=== PATIENT | male | born 1975 | race Hispanic/Latino ===

== ENCOUNTER → 2018-12-16 | Day surgery (SDC) | payer OTHER ==
--- NOTE | 2018-12-06 17:15 | Diagnostic Imaging Report ---
EXAMINATION: CHEST 2 VIEWS INDICATION: Pre-operative COMPARISON: None FINDINGS: LINES/TUBES:None LUNGS:The lungs are well-inflated. No focal consolidation or pulmonary edema. PLEURA:No pleural effusion or pneumothorax. MEDIASTINUM:The cardiomediastinal silhouette appears normal in size and shape. BONES/SOFT TISSUES:No acute osseous injury. ABDOMEN:No free air under the diaphragm. IMPRESSION: No focal pneumonia or pulmonary edema. Signed by: Cristian Gore MD on 12/06/2018 5:12 PM
--- OUTSIDE RECORDS SUMMARY | 2018-12-12 05:24 | XMS REPORT ---
Author Author [facility] Address Unknown Phone Unavailable Care Team Providers Care Hop Grower Name Role Phone Peri ANSARI Unavailable Unavailable Payers Payer Name Policy Type Policy Number Effective Date Expiration Date Problems This patient has no known problems. Allergies, Adverse Reactions, Alerts Allergy Name Allergy Type Status Severity Reaction(s) Onset Date Inactive Date Treating Clinician Comments No Known Allergies DA Active U 2018-11-15 00:00:00 No Known Allergies DA Active U 2018-09-27 00:00:00 No Known Allergies DA Active U 2015-07-10 00:00:00 Medications This patient has no known medications. Results Test Description Test Time Test Comments Text Results Atomic Results Result Comments CHEST 2 VIEWS 2018-12-06 17:05:00 [place] [address] Patient Name: OLEG MATA MR #: [id number] : 1975 Age/Sex: 43/M Req #: [id number] Adm Physician: Ordered by: PO ANSARI DP Report #: [id number] Location: OR Room/Bed: Procedure: [id number] DX/CHEST 2 VIEWS Exam Date: 12/06/18 Exam Time: 1610 REPORT STATUS: Signed EXAMINATION: CHEST 2 VIEWS INDICATION: Pre-operative COMPARISON: None FINDINGS: LINES/TUBES:None LUNGS:The lungs are well-inflated. No focal consolidation or pulmonary edema. PLEURA:No pleural effusion or pneumothorax. MEDIASTINUM:The cardiomediastinal silhouette appears normal in size and shape. BONES/SOFT TISSUES:No acute osseous injury. ABDOMEN:No free air under the diaphragm. IMPRESSION: No focal pneumonia or pulmonary edema. Signed by: Justin William MD on 12/06/2018 5:12 PM Dictated By: JUSTIN WILLIAM MD 11 Transcribed By: VIRIDIANA on 12/06/181711 COPY TO: PO ANSARI BASIC METABOLIC PANEL 2018-11-15 12:36:00 SODIUM (test code=NA) 137 mmol/L 136-145 POTASSIUM (test code=K) 3.7 mmol/L 3.5-5.1 CHLORIDE (test code=CL) 106.0 mmol/L 98-107 CARBON DIOXIDE (test code=CO2) 25.0 mmol/L 21-32 ANION GAP (test code=GAP) 9.7 10-20 GLUCOSE (test code=GLU) 174 mg/dL 74-106 BLOOD UREA NITROGEN (test code=BUN) 11 mg/dL 7-18 GLOMERULAR FILTRATION RATE (test code=GFR) > 60 mL/min >=60 Estimated GFR by using Modified MDRD formula.Chronic kidney disease is defined as either kidney damageor GFR <60 mL/min/1.73 m2 for >3 months. CREATININE (test code=CREAT) 0.80 mg/dL 0.7-1.3 BUN/CREATININE RATIO (test code=BUN/CREA) 14.5 10-20 CALCIUM (test code=CA) 9.2 mg/dL 8.5-10.1 CBC W/O [id number] 12:14:00* Test Item Value Reference Range Comments WHITE BLOOD CELL (test code=WBC) 7.5 K/mm3 4.5-12.5 RED BLOOD CELL (test code=RBC) 4.71 mill/mm3 4.0-5.8 HEMOGLOBIN (test code=HGB) 14.0 gram/dL 13.0-17.5 HEMATOCRIT (test code=HCT) 41.3 % 42.0-52.0 MEAN CELL VOLUME (test code=MCV) 87.7 fL 80-98 MEAN CELL HGB (test code=MCH) 29.7 picogram 27.0-33.0 MEAN CELL HGB CONCETRATION (test code=MCHC) 33.9 gram/dL 33.0-36.0 RED CELL DISTRIBUTION WIDTH (test code=RDW) 12.6 % 11.6-16.2 PLATELET COUNT (test code=PLT) 208 K/mm3 150-450 MEAN PLATELET VOLUME (test code=MPV) 11.1 fL 6.7-11.0 BASIC METABOLIC [id number] 12:13:00* Test Item Value Reference Range Comments SODIUM (test code=NA) 137 mmol/L 136-145 POTASSIUM (test code=K) 3.7 mmol/L 3.5-5.1 CHLORIDE (test code=CL) 106.0 mmol/L 98-107 CARBON DIOXIDE (test code=CO2) mmol/L 21-32 ANION GAP (test code=GAP) 10-20 GLUCOSE (test code=GLU) mg/dL 74-106 BLOOD UREA NITROGEN (test code=BUN) mg/dL 7-18 GLOMERULAR FILTRATION RATE (test code=GFR) mL/min >=60 CREATININE (test code=CREAT) mg/dL 0.7-1.3 BUN/CREATININE RATIO (test code=BUN/CREA) 10-20 CALCIUM (test code=CA) mg/dL 8.5-10.1 CBC W/O [id number] 12:11:00* Test Item Value Reference Range Comments WHITE BLOOD CELL (test code=WBC) K/mm3 4.5-12.5 RED BLOOD CELL (test code=RBC) mill/mm3 4.0-5.8 HEMOGLOBIN (test code=HGB) 14.0 gram/dL 13.0-17.5 HEMATOCRIT (test code=HCT) % 42.0-52.0 MEAN CELL VOLUME (test code=MCV) fL 80-98 MEAN CELL HGB (test code=MCH) picogram 27.0-33.0 MEAN CELL HGB CONCETRATION (test code=MCHC) gram/dL 33.0-36.0 RED CELL DISTRIBUTION WIDTH (test code=RDW) % 11.6-16.2 PLATELET COUNT (test code=PLT) K/mm3 150-450 MEAN PLATELET VOLUME (test code=MPV) fL 6.7-11.0 - XR FOOT 3 + V [id number] 11:27:00 FAX: Tyra Jones NP [place]: St: REG Name: OLEG MICHAELS [facility] : [birth year] Age/S: 43/M [address] [facility] Unit #: [id number] Loc: [place] [address] Phys: Tyra Jones NP Acct: [id number] Dis Date: Status: REG ER PHONE #: [phone] Exam Date: 11/15/2018 1111 FAX #: [phone] Reason: FOOT PAIN EXAMS: CPT CODE: [id number] XR FOOT 3 + [place] [id number] TECHNIQUE - XR FOOT 3 + V LT . COMPARISON: None provided. HISTORY: 43 years Male FOOT PAIN FINDINGS: Bones: Acute fracture involves the mid/proximal portion of the fifth metatarsal, 2 mm greatest fragment separation. Soft tissue swelling. No dislocation. No suspicious bone lesion. Joints: Mild osteophytes. Mild joint spa ce reduction. No subchondral bone lesions. No bony erosions. Other: None. IMPRESSION: Acute fracture involves t he mid/proximal portion of the fifth metatarsal, 2 mm greatest fragment separation. Soft tissue swelling. Mild osteoarthritic changes. at 1127 Reported and signed by: Jasper Massey M.D. CC: Tyra Jones NP Technologist: Nichole Li) [facility] Date/Time/By: 11/15/2018 (1127) : By: Ann MarieALICIA Orig Print D/T: S: 11/15/2018 (0415) PAGE 1 Signed Report - CT ABD PELVIS W WO [id number] 17:36:00 Name: OLEG LACKEY [facility] : 1975 Age/S: 43 / M [address] [facility] [facility] Unit #: [id number] Loc: [place] [address] Phys: Mukund Londono MD Acct: [id number] Dis Date: Status: REG ER PHONE #: [phone] Exam Date: 09/27/2018 170 FAX #: [phone] Reason: back pain, hematuria EXAMS: CPT CODE: [id number] CT ABD PELVIS W WO CONT 11042 HISTORY: Back pain and hematuria. COMPARISON: None available. CT of abdomen and pelvis with and without IV contrast: 100 mL of Isovue-370. Automated exposure control. CT abdomen: Lung bases are clear. Dependent changes. The liver is enhancing homogeneously no discrete mass. Liver measured 22.6 cm in length. Hepatic artery and portal vein remain patent. Unremarkable spleen. Stomach distended incompletely but it is normal. Pancreas is enhancing homogeneously. Unremarkable adrenals. Kidneys are free from hydroureteronephrosis with homogeneous enhancement. Bilateral excretion. No calyceal stones on the precontrast sequence. No perinephric collections. No pathologic adenopathy. Well-opacified abdominal and pelvic vasculature. No bowel obstruction or colitis or diverticulitis or enteritis. Constipation. CT PELVIS: Patient is post appendectomy. Pelvic bowel loops are unobstructed with mild sigmoid diverticulosis without diverticulitis. Unremarkable completely distended urinary bladder without mass or mural nodules. Seminal vesicles are unremarkable. The prostate is not enlarged. No pelvic pathologic adenopathy. Patulous fat-containing left inguinal canal. No free fluid or free air or abscess. Subcutaneous tissues and the musculature are normal in appearance. No lytic or blastic lesions are noted within the bony skeleton. Bone islands within both femoral heads. Mildly dilated S2 canal. IMPRESSION: PAGE 1 Signed Report (CONTINUED) Name: OLEG LACKEY [facility] : 1975 Age/S: 43 / M [address] Unit #: [id number] Loc: [place] [address] Phys: Mukund Londono MD Acct: [id number] Dis Date: Status: REG ER PHONE #: [phone] Exam Date: 09/27/2018 1707 FAX #: [phone] Reason: back pain, hematuria EXAMS: CPT CODE: [id number] CT ABD PELVIS W WO CONT 17600 < Continued> No acute intra-abdominal or intrapelvic pathology with no hydroureteronephrosis or calyceal stones and unremarkable urinary bladder. Dilated and patulous S2 canal. at 1731 Reported and signed by: Isra Perez M.D. CC: Mukund Londono MD Technologist:Izzy Bhandari RT(R) CTDI: DLP: Trnscb Date/Time: 09/27/2018 (173) t.SDR.[email or web address] Orig Print D/T: S: 09/27/2018 (1584) PAGE 2 Signed Report - XR L-SPINE 2/3 VIEWS 2018-09-27 16:49:00 FAX: Mukund Londono MD [phone]: St: REG Name: OLEG MICHAELS [facility] : [birth year] Age/S: 43/M [address] Unit #: [id number] Loc: [place] [address] Phys: Mukund Londono MD Acct: [id number] Dis Date: Status: REG ER PHONE #: [phone] Exam Date: 09/27/2018 1632 FAX #: [phone] Reason: low back pain EXAMS: CPT CODE: [id number] XR L-SPINE 2/3 VIEWS 87346 HISTORY: Low back pain. COMPARISON: None available. Lumbar spine series, 3 views: No acute fracture or dislocation. Vertebral body heights are ma intained. Narrowed disc space at L5-S1 level. Anterior osteophytes. Fac et arthropathy at L5-S1 level. IMPRESSION: No acute fracture or dislocation. Vertebral body heights are maintained. at 1649 Reported and signed by: Isra Perez M.D. CC: Mukund Londono MD Technologist: Varsha Griffith RT(R) Trnscrd Date/Time/By: 0 09/27/2018 (1648) : By: Ann MarieTH4 Orig Print D/T: S: 09/27/2018 (950) PAGE 1 Signed Report URINALYSIS [id number] 16:43:00* Test Item Value Reference Range Comments UA COLOR (test code=COLU) Light-Yellow YELLOW UA APPEARANCE (test code=APPU) CLEAR CLEAR UA GLUCOSE DIPSTICK (test code=DGLUU) NEGATIVE mg/dL NEGATIVE UA BILIRUBIN DIPSTICK (test code=BILU) NEGATIVE mg/dL NEGATIVE UA KETONE DIPSTICK (test code=KETU) NEGATIVE mg/dL NEGATIVE UA SPECIFIC GRAVITY (test code=SGU) 1.020 1.001-1.035 UA BLOOD DIPSTICK (test code=JUNG) Negative mg/dL NEGATIVE UA PH DIPSTICK (test code=MILAD) 6.0 5.0-8.0 UA PROTEIN DIPSTICK (test code=PROU) NEGATIVE mg/dL NEGATIVE UA UROBILINIOGEN DIPSTICK (test code=URO) Normal mg/dL NEGATIVE UA NITRITE DIPSTICK (test code=ROSELYN) NEGATIVE NEGATIVE UA LEUKOCYTE ESTERASE W REFLEX (test code=LEUUR) NEGATIVE [place]/uL NEGATIVE UA WBC (test code=WBCU) 0-5 per HPF 0-5 UA RBC (test code=RBCU) 0-2 #/HPF 0-5 UA EPITHELIAL CELLS (test code=EPIU) None seen per HPF FEW UA BACTERIA (test code=BACU) FEW #/HPF NONE UA MUCUS (test code=MUCU) FEW #/LPF FEW Urine Source? Clean CatchURINALYSIS [id number] 16:42:00* Test Item Value Reference Range Comments UA COLOR (test code=COLU) Light-Yellow YELLOW UA APPEARANCE (test code=APPU) CLEAR CLEAR UA GLUCOSE DIPSTICK (test code=DGLUU) NEGATIVE mg/dL NEGATIVE UA BILIRUBIN DIPSTICK (test code=BILU) NEGATIVE mg/dL NEGATIVE UA KETONE DIPSTICK (test code=KETU) NEGATIVE mg/dL NEGATIVE UA SPECIFIC GRAVITY (test code=SGU) 1.020 1.001-1.035 UA BLOOD DIPSTICK (test code=JUNG) Negative mg/dL NEGATIVE UA PH DIPSTICK (test code=MILAD) 6.0 5.0-8.0 UA PROTEIN DIPSTICK (test code=PROU) NEGATIVE mg/dL NEGATIVE UA UROBILINIOGEN DIPSTICK (test code=URO) Normal mg/dL NEGATIVE UA NITRITE DIPSTICK (test code=ROSELYN) NEGATIVE NEGATIVE UA LEUKOCYTE ESTERASE W REFLEX (test code=LEUUR) NEGATIVE [place]/uL NEGATIVE UA WBC (test code=WBCU) per HPF 0-5 UA RBC (test code=RBCU) per HPF 0-5 UA EPITHELIAL CELLS (test code=EPIU) per HPF Few UA BACTERIA (test code=BACU) per HPF NONE Urine Source? Clean [id number] 15:50:00* Test Item Value Reference Range Comments D-DIMER (test code=DDIMER) 289.00 ng/mLFEU 0-500 Clinical Cut-off value for D- Dimer is 500 ng/mL FEU. Comment: The [employer] D-Dimer assay is intended for use asan aid in the diagnosis of venous thromboembolism (VTE)[deep vein thrombosis (DVT) or pulmonary embolism (PE)].The measurement of D-Dimer should not be used as an aid inthe diagnosis of VTE, in patient with: -Therapeutic dose anticoagulant therapy for >24 hours -Fibrinolytic therapy within previous 7 days -Trauma or surgery within previous 4 weeks -Disseminated malignancies - Aortic aneurysm -Sepsis, severe infections, pneumonia, severe skin infections -Liver cirrhosis - PROTHROMBIN [id number] 15:41:00* Test Item Value Reference Range Comments PROTHROMBIN TIME PATIENT (test code=PTP) 11.5 seconds 9.0-14.0 INTERNATIONAL NORMAL RATIO (test code=INR) 1.0 0.8-1.2 The therapeutic range for oral anticoagulant therapy formost indications is an international normalized ratio (INR)of between 2.0 and 3.0. The recommended therapeutic INRrange for various clinical situations is listed below: Clinical Situation INR range Pulmonary e mbolism treatment (2.0-3.0)Venous thrombosis treatmentVenous thrombosis prophylaxis (high risk surgery)Prevention of systemic embolism from: Acute myocardial infarction Valvular heart disease Atrial fibrillation Mechanical prosthetic heart valves (2.5-3.5) IS PATIENT ON ANTICOAGULANTS? NTHROMBOPLASTIN TIME [id number] 15:41:00* Test Item Value Reference Range Comments THROMBOPLASTIN TIME PARTIAL (test code=PTT) 41.3 seconds 25.0-36.5 IS PATIENT ON ANTICOAGULANTS? NBASIC METABOLIC [id number] 15:40:00* Test Item Value Reference Range Comments SODIUM (test code=NA) 139 mmol/L 136-145 POTASSIUM (test code=K) 4.0 mmol/L 3.5-5.1 CHLORIDE (test code=CL) 108.0 mmol/L 98-107 CARBON DIOXIDE (test code=CO2) 26.0 mmol/L 21-32 ANION GAP (test code=GAP) 9.0 10-20 GLUCOSE (test code=GLU) 109 mg/dL 74-106 BLOOD UREA NITROGEN (test code=BUN) 13 mg/dL 7-18 GLOMERULAR FILTRATION RATE (test code=GFR) > 60 mL/min >=60 Estimated GFR by using Modified MDRD formula.Chronic kidney disease is defined as either kidney damageor GFR <60 mL/min/1.73 m2 for >3 months. CREATININE (test code=CREAT) 0.80 mg/dL 0.7-1.3 BUN/CREATININE RATIO (test code=BUN/CREA) 16.3 10-20 CALCIUM (test code=CA) 9.2 mg/dL 8.5-10.1 HEPATIC FUNCTION [id number] 15:40:00* Test Item Value Reference Range Comments TOTAL PROTEIN (test code=PROT) 7.9 gram/dL 6.4-8.2 ALBUMIN (test code=ALB) 4.3 g/dL 3.4-5.0 GLOBULIN (test code=GLOB) 3.6 gram/dL 2.7-4.2 ALBUMIN/GLOBULIN RATIO (test code=A/G) 1.2 0.75-1.50 BILIRUBIN TOTAL (test code=BILT) 0.40 mg/dL 0.0-1.0 BILIRUBIN DIRECT (test code=BILD) 0.07 mg/dL 0.0-0.20 SGOT/AST (test code=AST) 43 IUnit/L 15-37 SGPT/ALT (test code=ALT) 120 IUnit/L 12-78 ALKALINE PHOSPHATASE TOTAL (test code=ALKP) 91 IUnit/L 45-117 Note change in reference range due to change in reagent. [id number] 15:40:00* Test Item Value Reference Range Comments LIPASE (test code=LIP) 70 U/L 73.0-393.0 BASIC METABOLIC [id number] 15:32:00* Test Item Value Reference Range Comments SODIUM (test code=NA) 139 mmol/L 136-145 POTASSIUM (test code=K) 4.0 mmol/L 3.5-5.1 CHLORIDE (test code=CL) 108.0 mmol/L 98-107 CARBON DIOXIDE (test code=CO2) mmol/L 21-32 ANION GAP (test code=GAP) 10-20 GLUCOSE (test code=GLU) mg/dL 74-106 BLOOD UREA NITROGEN (test code=BUN) mg/dL 7-18 GLOMERULAR FILTRATION RATE (test code=GFR) mL/min >=60 CREATININE (test code=CREAT) mg/dL 0.7-1.3 BUN/CREATININE RATIO (test code=BUN/CREA) 10-20 CALCIUM (test code=CA) mg/dL 8.5-10.1 HEPATIC FUNCTION [id number] 15:32:00* Test Item Value Reference Range Comments TOTAL PROTEIN (test code=PROT) gram/dL 6.4-8.2 ALBUMIN (test code=ALB) g/dL 3.4-5.0 GLOBULIN (test code=GLOB) gram/dL 2.7-4.2 ALBUMIN/GLOBULIN RATIO (test code=A/G) 0.75-1.50 BILIRUBIN TOTAL (test code=BILT) mg/dL 0.0-1.0 BILIRUBIN DIRECT (test code=BILD) mg/dL 0.0-0.20 SGOT/AST (test code=AST) IUnit/L 15-37 SGPT/ALT (test code=ALT) IUnit/L 12-78 ALKALINE PHOSPHATASE TOTAL (test code=ALKP) IUnit/L 45-117 [id number] 15:32:00* Test Item Value Reference Range Comments LIPASE (test code=LIP) U/L 73.0-393.0 CBC W/O [id number] 15:31:00* Test Item Value Reference Range Comments WHITE BLOOD CELL (test code=WBC) 9.3 K/mm3 4.5-12.5 RED BLOOD CELL (test code=RBC) 5.06 mill/mm3 4.0-5.8 HEMOGLOBIN (test code=HGB) 15.1 gram/dL 13.0-17.5 HEMATOCRIT (test code=HCT) 45.0 % 42.0-52.0 MEAN CELL VOLUME (test code=MCV) 88.9 fL 80-98 MEAN CELL HGB (test code=MCH) 29.8 picogram 27.0-33.0 MEAN CELL HGB CONCETRATION (test code=MCHC) 33.6 gram/dL 33.0-36.0 RED CELL DISTRIBUTION WIDTH (test code=RDW) 12.3 % 11.6-16.2 PLATELET COUNT (test code=PLT) 205 K/mm3 150-450 MEAN PLATELET VOLUME (test code=MPV) 10.8 fL 6.7-11.0
[~2018-12-16] MED LIST: ACETAMINOPHEN 1000 MG/100 ML IV ONE; BUPIVACAINE HCL 0.5% INJ 30 ML VIAL INJ ONE; CEFAZOLIN SOD 1 GM/NS 50ML 50 ML IV ONE; DEXAMETHASONE SOD PHOS INJ 4 MG/ML VIAL ONE; DOXYCYCLINE HY100 MG PO; FENTANYL CITRATE/PF 100MCG/2 ML INJ ONE; KETOROLAC TROMETHAMINE 30 MG/ML VIAL ONE; LIDOCAINE HCL 2% LOCAL INJ 5 ML SDV VIAL INJ ONE; MIDAZOLAM HCL 2 MG/2 ML VIAL ONE; NORCO 5-325 TA1 EACH PO; ONDANSETRON HCL INJ 2MG/ML 2ML 2 MG/ML VIAL ONE; PROPOFOL IV EMULSION 10 MG/ML 20 ML VIAL ONE; SEVOFLURANE INHAL SOLN 250 ML PEN BTL ONE; TYLENOL WITH C1 EACH PO
[2018-12-16 08:45] VITALS: BP 128/82
--- NOTE | 2018-12-16 11:27 | Operative Report ---
DATE OF PROCEDURE: 12/16/2018 SURGEON: Mya Tracy DPM PREOPERATIVE DIAGNOSIS: Left 5th metatarsal fracture. POSTOPERATIVE DIAGNOSIS: Left 5th metatarsal fracture. PLANNED PROCEDURES: Left 5th metatarsal open reduction and internal fixation. ANESTHESIA: General with a postoperative block consisting of 20 mL of 0.5% Marcaine plain. HEMOSTASIS: Pneumatic thigh tourniquet set at 350 mmHg for a total time of approximately 30 minutes. MATERIALS: Four 2.0 mm bone screws, three measuring 14 mm and one measuring 12 mm, one four-hole Synthes plate, 3-0 Vicryl, 4-0 Prolene. ESTIMATED BLOOD LOSS: Less than 10 mL. PATHOLOGY: None. PROCEDURE NOTE: The patient was seen in the preoperative waiting room, where the correct procedure and site was identified. The patient was brought to the operating room and placed on the operating table in the supine position. General anesthesia was initiated. At this time, a well-padded pneumatic tourniquet was placed about the patient's left thigh. The left foot, ankle, and leg was then scrubbed, prepped, and draped in the usual aseptic manner. The left foot, ankle, and leg was exsanguinated with an Esmarch bandage and the pneumatic thigh tourniquet was inflated to 350 mmHg for a total time of approximately 30 minutes. Attention was directed to the lateral aspect of the patient's left 5th metatarsal, where a 5 cm linear incision was made extending from the distal shaft of the metatarsals to the proximal shaft just distal to the base. The incision was carried through subcutaneous tissue them from deep or underlying structures. All vital neurovascular structures were identified and retracted medially and laterally; and all bleeders were cauterized or ligated as deemed necessary. At this time, the 5th metatarsal was easily identified and a long spiral oblique fracture was noted. Utilizing a Phoenix elevator, the 5th metatarsal was freed. It should be noted that upon exploration of the incision site, there was noted to be some debris likely shoe or sock material from the previous injury. The wound was then copiously irrigated with sterile saline and mixed with bacitracin. Utilizing techniques of manipulation and distraction, the 5th metatarsal was reduced, anatomic alignment, and temporarily pinned with K-wires and this was confirmed via intraoperative fluoroscopy. Next, utilizing techniques of AO fixation, one 4-0 plate was placed across the operative site followed by four 2.0 mm screws, three measuring 14 mm and one measuring 12 mm. The fixation site is stable. The wound was then copiously irrigated with sterile saline. The deep tissue was reapproximated utilizing 3-0 Vicryl, subcutaneous tissue with 3-0 Vicryl, and the skin was closed using a running interlocking stitch with 4-0 Prolene. The incision site was then dressed with Adaptic, 4x4s, Kerlix, 4 x 30 posterior splint, 4-inch Roberto wrap, and a 6-inch Roberto wrap. The patient tolerated the procedure and anesthesia well. The patient was transferred to the postoperative recovery unit with vital signs stable and vascular status intact. The patient was monitored there for a short period time before being sent home with the following written and oral instructions: 1. Keep the dressing clean, dry, and intact. 2. The patient is to remain partial weightbearing in a postoperative shoe to avoid any ambulation until being seen in the office. 3. The patient is given office number and instructed to contact us if any problems arise. RENZO Hopper/LAQUITA /[id number]
== END | disposition home or self-care (01) ==
LOC: OR 12-12 05:21
PROVIDERS: ATTEND Podiatrist Foot & Ankle Surgery
DX: S92.352A Displaced fracture of fifth metatarsal bone, left foot, initial encounter for closed fracture (principal); Z01.810 Encounter for preprocedural cardiovascular examination; Z01.811 Encounter for preprocedural respiratory examination
CPT/HCPCS: 28485; 71046; 93005; C1713; J0131; J0690; J1100; J1885; J2001; J2250; J2405; J2704; J3010